=== PATIENT | male | born 1965 | race African-American/Black ===

== ENCOUNTER 2023-05-11 20:26 | Emergency (ER) | payer MEDICAID, OTHER ==
[~2023-05-11] VITALS: Ht 180.3 cm; Wt 103.0 kg
[~2023-05-11 20:26] MED LIST: QUET400T; TOPUD
[2023-05-11 20:36] VITALS: BP 125/72; PULSE 85; RESP 18; O2SAT 97
[2023-05-11] MEDS ORDERED: BO1 TP (22:34)
[2023-05-11] MEDS ORDERED: BACITRACIN ZINC OINT UDPKT TOP ONE (22:45)
== END 2023-05-11 23:16 | disposition home or self-care (01) ==
LOC: ER 20:26
DX: T23.172A Burn of first degree of left wrist, initial encounter (principal); T31.0 Burns involving less than 10% of body surface; E78.00 Pure hypercholesterolemia, unspecified; F12.10 Cannabis abuse, uncomplicated; X10.2XXA Contact with fats and cooking oils, initial encounter; Y93.89 Activity, other specified; Y92.89 Other specified places as the place of occurrence of the external cause; Y99.8 Other external cause status
CPT/HCPCS: 73090; 73110; 99284

== ENCOUNTER 2024-10-31 13:01 | Emergency (ER) | payer MEDICAID ==
[~2024-10-31] VITALS: Ht 180.3 cm; Wt 118.0 kg
[~2024-10-31 13:01] MED LIST changes: +BO1 TP
[2024-10-31 13:07] VITALS: O2SAT 98
[2024-10-31] MEDS: TETANUS, DIPHTHERIA, PERTUSSIS VAC/PF 0.5ML (>10YR OLD) IM ONE (13:46)
[2024-10-31] MEDS: IBUPROFEN 400MG TABLET PO ONE (13:47)
[2024-10-31] MEDS ORDERED: CEPH500C2 MT (13:58)
[2024-10-31] MEDS ORDERED: IBUP-2028 MT (14:04)
[2024-10-31] MEDS ORDERED: CIPR-263 MT (14:04)
[2024-10-31 14:17] VITALS: BP 137/89; PULSE 72; RESP 18; TEMP 36.8; O2SAT 98
== END 2024-10-31 14:21 | disposition home or self-care (01) ==
LOC: ER 13:15
DX: S91.332A Puncture wound without foreign body, left foot, initial encounter (principal); E78.00 Pure hypercholesterolemia, unspecified; F12.90 Cannabis use, unspecified, uncomplicated; Z79.899 Other long term (current) drug therapy; W45.0XXA Nail entering through skin, initial encounter; Y93.89 Activity, other specified; Y92.89 Other specified places as the place of occurrence of the external cause; Y99.8 Other external cause status
CPT/HCPCS: 73630; 90715; 90471; 99283; Z7610 ×2